=== PATIENT | male | born 1995 | race Caucasian/White ===

== ENCOUNTER 2019-01-10 02:48 | Emergency (ER) | payer BC ==
[~2019-01-10] VITALS: Ht 167.6 cm; Wt 54.4 kg
[2019-01-10] MEDS ORDERED: PERCOCET 5-3251 EACH PO (05:29)
== END 2019-01-10 06:02 | disposition home or self-care (01) ==
LOC: ED 02:48
DX: S37.032A Laceration of left kidney, unspecified degree, initial encounter (principal); W01.198A Fall on same level from slipping, tripping and stumbling with subsequent striking against other object, initial encounter
CPT/HCPCS: 74177; 80053; 81001; 85025; 87088; 99284-25; J1885; J2270; J2405; J7030; Q9967